=== PATIENT | female | born 1995 | race African-American/Black ===

== ENCOUNTER 2017-03-31 13:04 | Emergency (ER) | payer OTHER ==
[~2017-03-31 13:04] MED LIST: CEPH500 PO; IBUP600 PO; PREN1TAB30 PO
[2017-03-31 13:10] VITALS: BP 135/75; PULSE 92; RESP 17; TEMP 98.6; O2SAT 97
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
== END 2017-03-31 17:58 | disposition left against medical advice (07) ==
LOC: NED 13:04
DX: M54.2 Cervicalgia (principal); V89.2XXA Person injured in unspecified motor-vehicle accident, traffic, initial encounter
CPT/HCPCS: 99281

== ENCOUNTER 2017-04-19 10:37 | Emergency (ER) | payer OTHER ==
[~2017-04-19] VITALS: Ht 167.6 cm; Wt 85.0 kg
[2017-04-19 10:38] VITALS: BP 129/77; PULSE 71; RESP 16; TEMP 99.1; O2SAT 99
--- NOTE | 2017-04-19 11:10 | PD ---
HPI Chief Complaint: Abdominal Pain Time Seen by Provider: 10:51 Travel History International Travel<30 days: No Contact w/Intl Traveler<30days: No Traveled to known affect area: No History of Present Illness HPI 21-year-old otherwise healthy female presents to the emergency room for evaluation of dysuria, pelvic pain, and foul-smelling urine for the past week. Patient states she is prone to urinary tract infections and this is how her symptoms typically present. She denies vaginal discharge, fever, chills, nausea , vomiting, and flank pain. She is not allergic to anything. Denies chronic medical conditions or daily medications. He last menstrual cycle was 2 weeks ago. PFSH Past Medical History Diminished Hearing: No ?: Not LMP: 03/04/17 : 1 Para: 1 Social History Alcohol Use: No Tobacco Use: No Substance Use: No Allergies-Medications (Allergen,Severity, Reaction): Coded Allergies: No Known Allergies (Unverified Adverse Reaction, Unknown, 04/19/17) Reported Meds & Prescriptions Reported Meds & Active Scripts Active Bactrim DS (Sulfamethoxazole-Trimethoprim) 800-160 Mg Tab 1 Tab PO BID Motrin 600 Mg Tab (Ibuprofen) 600 Mg Tab 600 Mg PO Q6H PRN Keflex 500 mg Cap (Cephalexin Monohydrate) 500 Mg Cap 500 Mg PO Q8H Vitamin 27-0.8 mg ( Vit W/ Ferrous Fumara) 1 Tab Tab 1 Tab PO DAILY Review of Systems Except as stated in HPI: all other systems reviewed are Neg Physical Exam Narrative GENERAL: Well-developed, well-nourished female in no acute distress. Afebrile. Ambulatory. SKIN: Warm and dry. HEAD: Atraumatic. Normocephalic. EYES: Pupils equal and round. No scleral icterus. No injection or drainage. NECK: Trachea midline. No JVD. CARDIOVASCULAR: Regular rate and rhythm. RESPIRATORY: No accessory muscle use. Clear to auscultation. Breath sounds equal bilaterally. GASTROINTESTINAL: Abdomen soft, non-tender, nondistended. Hepatic and splenic margins not palpable. No peritoneal signs. Mild tenderness to palpation in the pelvic region. PSYCHIATRIC: Appropriate mood and affect; insight and judgment normal. Data Data Last Documented VS Vital Signs Date Time Temp Pulse Resp B/P (MAP) Pulse Ox O2 Delivery O2 Flow Rate FiO2 04/19/17 10:38 99.1 71 16 129/77 (94) 99 Room Air Orders Orders Urinalysis - C+S If Indicated (04/19/17 10:59) Ed Urine Pregnancytest Poc (04/19/17 10:59) Ed Discharge Order (04/19/17 12:12) Labs Laboratory Tests Test 04/19/17 11:00 Urine Color YELLOW Urine Turbidity HAZY Urine pH 6.5 Urine Specific Ashley 1.011 Urine Protein TRACE mg/dL Urine Glucose (UA) NEG mg/dL Urine Ketones NEG mg/dL Urine Occult Blood NEG Urine Nitrite NEG Urine Bilirubin NEG Urine Urobilinogen LESS THAN 2.0 MG/DL Urine Leukocyte Esterase SMALL Urine RBC 1 /hpf Urine WBC 3 /hpf Urine Squamous Epithelial Cells 8 /hpf Urine Bacteria FEW /hpf Urine Mucus FEW /lpf Microscopic Urinalysis Comment CULT NOT INDICATED MDM Medical Decision Making Medical Screen Exam Complete: Yes Emergency Medical Condition: Yes Medical Record Reviewed: Yes Differential Diagnosis UTI, STD, Narrative Course 21-year-old otherwise healthy female presents to the emergency room for evaluation of possible UTI. She has dysuria, foul-smelling urine, dark urine, and pelvic cramping. Menstrual cycle is due in 2 weeks. Patient states her symptoms typically present like this. Denies any fever, chills, nausea, vomiting, or flank pain. Denies any vaginal discharge. She is afebrile and well-appearing the emergency room. Resting comfortably in bed. Patient barely looks up from her phone to communicate. Urine test is negative. UA shows some leukocyte esterase and few bacteria. Not particularly concerning for urinary tract infection. This could be mittelschmerz. Patient discharged with prescription for Bactrim and told to follow-up with a primary care physician and return for worsening symptoms. She understands and agrees to plan. Diagnosis Primary Impression: UTI (urinary tract infection) Qualified Codes: N30.00 - Acute cystitis without hematuria Referrals: Primary Care Physician Additional Instructions: Rest and drink plenty of fluids. Follow-up with a primary care physician. Return to the emergency room for worsening symptoms. Med/Other Pt SpecificInfo: Prescription(s) given Scripts Sulfamethoxazole-Trimethoprim (Bactrim DS) 800-160 Mg Tab 1 TAB PO BID for Infection, #6 TAB 0 Refills Prov: Kate Cespedes DO 04/19/17 Disposition: 01 DISCHARGE HOME Condition: Stable Lora Mcginnis Apr 19, 2017 11:10
[2017-04-19 11:33] LABS: BACTERIA, URINE FEW /hpf; BLOOD, URINE NEG (NEG); COMMENT (UR) CULT NOT INDICATED; CULTURE IF INDICATED CULT NOT INDICATED; GLUCOSE,URINE NEG (NEG); KETONE, URINE NEG (NEG); MUCUS URINE FEW /lpf (OCC); NITRITE,URINE NEG (NEG); PH, URINE 6.5 (5.0-8.5); SQUAMOUS EPITHELIAL CELL URINE 8 /hpf (0-5); URINE COLOR YELLOW (YELLW/STRAW)
[2017-04-19] MEDS ORDERED: BACT800T5 PO (12:13)
== END 2017-04-19 12:28 | disposition home or self-care (01) ==
LOC: NEPD 10:37
DX: N30.00 Acute cystitis without hematuria (principal)
CPT/HCPCS: 81001; 84703; 99283

== ENCOUNTER 2017-08-15 14:39 | Emergency (ER) | payer OTHER ==
[~2017-08-15 14:39] MED LIST changes: +BACT800T5 PO
[2017-08-15 14:46] VITALS: BP 153/88; PULSE 121; RESP 18; TEMP 100.3; O2SAT 100
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
== END 2017-08-15 18:01 | disposition home or self-care (01) ==
LOC: NEPD 14:39
DX: S60.211A Contusion of right wrist, initial encounter (principal); S61.216A Laceration without foreign body of right little finger without damage to nail, initial encounter; W25.XXXA Contact with sharp glass, initial encounter
CPT/HCPCS: 12001; 73130; 99283; L3908

== ENCOUNTER 2017-08-26 10:36 | Emergency (ER) | payer OTHER ==
[~2017-08-26] VITALS: Ht 172.7 cm; Wt 68.0 kg
[2017-08-26] MEDS ORDERED: GADODIAMIDE PF 287 MG/ML 10 ML VIAL (for RAD MRI) IVCONTRAST ONE (10:37)
[2017-08-26 10:45] VITALS: BP 136/62; PULSE 78; RESP 18; TEMP 99.2; O2SAT 98
--- NOTE | 2017-08-26 11:57 | PD ---
HPI Chief Complaint: Lump, Cyst, Hernia Time Seen by Provider: 11:41 Travel History International Travel<30 days: No Contact w/Intl Traveler<30days: No History of Present Illness HPI 21-year-old female presents emergency department complaining of a sore right elbow after she popped a pimple approximately 2 weeks ago. Patient states that she has had a difficult time expressing fluid from this area but noted that this has become more painful and swollen over the last week. Says that she has been using ibuprofen for pain relief. Says that she has difficult time extending and flexing her elbow and she is here today because her friends and family members a good idea for her to come. Patient denies fever or chills. Denies nausea, vomiting or diarrhea. Patient denies medical issues except for depression for which she just started Seroquel. PFSH Past Medical History Diminished Hearing: No ?: Not : 1 Para: 1 Social History Alcohol Use: No Tobacco Use: No Substance Use: No Allergies-Medications (Allergen,Severity, Reaction): Coded Allergies: No Known Allergies (Unverified Adverse Reaction, Unknown, 04/19/17) Reported Meds & Prescriptions Reported Meds & Active Scripts Active Bactrim DS (Sulfamethoxazole-Trimethoprim) 800-160 Mg Tab 1 Tab PO BID Keflex (Cephalexin) 500 Mg Cap 500 Mg PO Q8H 10 Days Bactrim DS (Sulfamethoxazole-Trimethoprim) 800-160 Mg Tab 1 Tab PO BID Motrin 600 Mg Tab (Ibuprofen) 600 Mg Tab 600 Mg PO Q6H PRN Keflex 500 mg Cap (Cephalexin Monohydrate) 500 Mg Cap 500 Mg PO Q8H Vitamin 27-0.8 mg ( Vit W/ Ferrous Fumara) 1 Tab Tab 1 Tab PO DAILY Review of Systems Except as stated in HPI: all other systems reviewed are Neg Physical Exam Narrative GENERAL: Well-developed, well-nourished in no apparent distress SKIN: Focused skin assessment warm/dry. HEAD: Atraumatic. Normocephalic. EYES: Pupils equal and round. No scleral icterus. No injection or drainage. ENT: No nasal bleeding or discharge. Mucous membranes pink and moist. NECK: Trachea midline. No JVD. CARDIOVASCULAR: Regular rate and rhythm. No murmur appreciated. RESPIRATORY: No accessory muscle use. Clear to auscultation. Breath sounds equal bilaterally. GASTROINTESTINAL: Abdomen soft, non-tender, nondistended. No CVA tenderness MUSCULOSKELETAL: No obvious deformities. No clubbing. No cyanosis. Right elbow- pt holding in flexed, 90 degree position of comfort, TTP from mid- forearm to mid-upper arm with associated edema, NEUROLOGICAL: Awake and alert. No obvious cranial nerve deficits. Motor grossly within normal limits. Normal speech. PSYCHIATRIC: Appropriate mood and affect; insight and judgment normal. Data Data Last Documented VS Vital Signs Date Time Temp Pulse Resp B/P (MAP) Pulse Ox O2 Delivery O2 Flow Rate FiO2 08/26/17 10:45 99.2 78 18 136/62 (86) 98 Orders Orders Complete Blood Count With Diff (08/26/17 11:46) Comprehensive Metabolic Panel (08/26/17 11:46) Prothrombin Time / Inr (Pt) (08/26/17 11:46) Act Partial Throm Time (Ptt) (08/26/17 11:46) Wound Culture And Gram Stain (08/26/17 11:46) Westergren Sedimentation Rate (08/26/17 11:46) C-Reactive Protein (Crp) (08/26/17 11:46) Ceftriaxone Inj (Rocephin Inj) (08/26/17 12:00) Mri Joint Elbow W&W/O Contrast (08/26/17 ) Ed Discharge Order (08/26/17 17:11) Ketorolac Inj (Toradol Inj) (08/26/17 17:15) Sulfamet-Trimeth Ds 800-160 Mg (Bactrim (08/26/17 17:15) Cephalexin (Keflex) (08/26/17 17:15) Ketorolac Inj (Toradol Inj) (08/26/17 17:45) Labs Laboratory Tests Test 08/26/17 12:13 White Blood Count 11.0 TH/MM3 Red Blood Count 3.92 MIL/MM3 Hemoglobin 11.1 GM/DL Hematocrit 33.2 % Mean Corpuscular Volume 84.6 FL Mean Corpuscular Hemoglobin 28.2 PG Mean Corpuscular Hemoglobin Concent 33.3 % Red Cell Distribution Width 16.3 % Platelet Count 261 TH/MM3 Mean Platelet Volume 8.6 FL Neutrophils (%) (Auto) 81.7 % Lymphocytes (%) (Auto) 12.0 % Monocytes (%) (Auto) 6.0 % Eosinophils (%) (Auto) 0.1 % Basophils (%) (Auto) 0.2 % Neutrophils # (Auto) 9.0 TH/MM3 Lymphocytes # (Auto) 1.3 TH/MM3 Monocytes # (Auto) 0.7 TH/MM3 Eosinophils # (Auto) 0.0 TH/MM3 Basophils # (Auto) 0.0 TH/MM3 CBC Comment DIFF FINAL Differential Comment Erythrocyte Sedimentation Rate 54 mm/hr Prothrombin Time 10.8 SEC Prothromb Time International Ratio 1.1 RATIO Activated Partial Thromboplast Time 28.0 SEC Blood Urea Nitrogen 7 MG/DL Creatinine 0.74 MG/DL Random Glucose 79 MG/DL Total Protein 7.5 GM/DL Albumin 3.4 GM/DL Calcium Level 8.5 MG/DL Alkaline Phosphatase 77 U/L Aspartate Amino Transf (AST/SGOT) 9 U/L Alanine Aminotransferase (ALT/SGPT) 11 U/L Total Bilirubin 1.0 MG/DL Sodium Level 140 MEQ/L Potassium Level 3.6 MEQ/L Chloride Level 107 MEQ/L Carbon Dioxide Level 27.6 MEQ/L Anion Gap 5 MEQ/L Estimat Glomerular Filtration Rate 122 ML/MIN C-Reactive Protein 8.39 MG/DL [facility] Medical Decision Making Medical Screen Exam Complete: Yes Emergency Medical Condition: Yes Differential Diagnosis Septic arthritis, cellulitis, abscess of the right elbow Narrative Course 21-year-old female presents emergency department complaining of a sore right elbow after she popped a pimple approximately 2 weeks ago. Patient states that she has had a difficult time expressing fluid from this area but noted that this has become more painful and swollen over the last week. Says that she has been using ibuprofen for pain relief. Says that she has difficult time extending and flexing her elbow and she is here today because her friends and family members a good idea for her to come. Patient denies fever or chills. Denies nausea, vomiting or diarrhea. Patient denies medical issues except for depression for which she just started Seroquel. Vital stable. Temp 99.2. Physical exam concerning for deep tissue cellulitis vs septic arthritis vs osteomyelitis. Labs and imaging studies ordered. Labs significant for white blood cell count 11.0, ESR 54, CRP 8.39, remaining CMP stable. Coags stable. Culture obtained from puncta on lateral epicondyle. I spoke with Andrew Law PA-C whom after discussion recommend an MRI to determine the extent of the cellulitis versus abscess. Rocephin 1g administered. Last Impressions Elbow MRI 08/26/17 0000 Signed Impressions: Service Date/Time: Saturday, August 26, 2017 15:20 - CONCLUSION: Limited exam because of body habitus. Induration confi T. subcutis tissues. There is no joint effusion. There is no extension into the deep tissues. Close followup is suggested. Julius Fox MD FACR She will be discharged with Bactrim and Keflex. Return to the emergency department Tuesday for reevaluation of wound. Patient states understanding will comply. Return to emergency room for worsening or persistent symptoms. Physician Communication Physician Communication Spoke with Dr. Meyers's PA, ALEX Werner and described my findings and labs thus far. Since there is a concern for a deep abscess/infection, will order an MRI to determine the extent of this cellulitis. Diagnosis Primary Impression: Cellulitis Qualified Codes: L03.113 - Cellulitis of right upper limb Referrals: Primary Care Physician Additional Instructions: Follow-up with primary care physician this week. Ensure you take all medication as prescribed. If your symptoms persist or worsen return to the emergency part. You may take Tylenol Motrin per package instructions for pain. Return Tuesday for a wound check, sooner for worsening or persistent symptoms. Scripts Sulfamethoxazole-Trimethoprim (Bactrim DS) 800-160 Mg Tab 1 TAB PO BID for Infection, #20 TAB 0 Refills Prov: Stacie Hardy 08/26/17 Cephalexin (Keflex) 500 Mg Cap 500 MG PO Q8H for Infection for 10 Days, #30 CAP 0 Refills Prov: Stacie Hardy 08/26/17 Disposition: 01 DISCHARGE HOME Condition: Stable Stacie Hardy Aug 26, 2017 11:57
[2017-08-26] MEDS ORDERED: cefTRIAXone INJ 1,000 MG in SODIUM CHLORIDE 0.9% INJ 100 ML IV ONE (12:00)
[2017-08-26 12:59] LABS: BASOPHIL % 0.2 % (0.0-2.0); EOSINOPHIL % 0.1 % (0.0-4.0); HEMATOCRIT 33.2 % (35.0-46.0); HEMOGLOBIN 11.1 GM/DL (11.6-15.3); LYMPHOCYTE # 1.3 TH/MM3 (1.0-4.8); MEAN CELL VOLUME 84.6 FL (80.0-100.0); MEAN CORPUSCULAR HEMOGLOBIN 28.2 PG (27.0-34.0); MEAN CORPUSCULAR HGB CONC 33.3 % (32.0-36.0); MEAN PLATELET VOLUME 8.6 FL (7.0-11.0); MONOCYTE # 0.7 TH/MM3 (0-0.9); NEUT % 81.7 % (16.0-70.0); PLATELET COUNT 261 TH/MM3 (150-450); RED BLOOD COUNT 3.92 MIL/MM3 (4.00-5.30); RED CELL DISTRIBUTION WIDTH 16.3 % (11.6-17.2)
[2017-08-26 13:11] LABS: INTERNATIONAL NORMALIZED RATIO 1.1 RATIO; PROTHROMBIN TIME - PATIENT 10.8 SEC (9.8-11.6)
[2017-08-26 13:20] LABS: ALBUMIN 3.4 GM/DL (3.4-5.0); AST (GOT) 9 U/L (16-38); BICARBONATE 27.6 MEQ/L (21.0-32.0); BLOOD UREA NITROGEN 7 MG/DL (7-18); CALCIUM 8.5 MG/DL (8.5-10.1); CHLORIDE 107 MEQ/L (98-107); CREATININE 0.74 MG/DL (0.50-1.00); GLOMERULAR FILTRATION RATE 122 ML/MIN (>89); GLUCOSE,RANDOM 79 MG/DL (74-106); SODIUM (NA) 140 MEQ/L (136-145)
[2017-08-26 13:23] LABS: ALKALINE PHOSPHATASE 77 U/L (45-117); ALT (GPT) 11 U/L (9-42); C-REACTIVE PROTEIN 8.39 MG/DL (0.00-0.30); TOTAL PROTEIN 7.5 GM/DL (6.4-8.2)
--- NOTE | 2017-08-26 17:04 | RADRPT ---
EXAM DATE/TIME: 08/26/2017 15:20 [facility] COMPARISON: No previous studies available for comparison. INDICATIONS : Abscess. CONTRAST: 10 cc Omniscan (gadodiamide) IV MEDICAL HISTORY : None. SURGICAL HISTORY : None. ENCOUNTER: Initial ACUITY: 2 day PAIN SCORE: 4/10 LOCATION: Right Elbow TECHNIQUE: Multiplanar, multisequence MRI examination was performed without contrast and after the intravenous a dministration of gadolinium. FINDINGS: There is soft tissue induration in the subcutaneous tissues lateral side of the elbow that does not c ross the fascial planes into the deep muscular spaces. There is no joint effusion. There is no locu lated fluid collection present. CONCLUSION: Limited exam because of body habitus. Induration confi T. subcutis tissues. There i s no joint effusion. There is no extension into the deep tissues. Close followup is suggested. Julius Fox MD FACR on August 26, 2017 at 17:00 Board Certified Radiologist. This report was verified electronically.
[2017-08-26] MEDS ORDERED: BACT800T5 PO (17:09)
[2017-08-26] MEDS ORDERED: CEPH-460 PO (17:09)
[2017-08-26] MEDS ORDERED: KETOROLAC TROMETHAMINE 60 MG/2 ML (IM) VIAL IM ONE (17:15)
[2017-08-26] MEDS ORDERED: CEPHALEXIN MONOHYDRATE 500 MG CAP PO ONE (17:15)
[2017-08-26] MEDS ORDERED: SULFAMETHOXAZOLE-TRIMETHOPRIM DS 800-160 MG TAB PO ONE (17:15)
[2017-08-26] MEDS ORDERED: KETOROLAC TROMETHAMINE 30 MG/ML (IVP) VIAL IV PUSH ONE (17:45)
== END 2017-08-26 18:30 | disposition home or self-care (01) ==
LOC: NEPA 10:36
DX: L03.113 Cellulitis of right upper limb (principal); F32.9 Major depressive disorder, single episode, unspecified
CPT/HCPCS: 73223; 80053; 85025; 85610; 85652; 85730; 86140; 86403; 87070; 87186; 96365; 96375; 99284; A9579; J0696; J1885; 87205